=== PATIENT | male | born 1990 | race Caucasian/White ===

== ENCOUNTER 2017-09-10 06:06 | Emergency (ER) | payer SELFPAY ==
[2017-09-10] MEDS ORDERED: ONDANSETRON 4 MG/2 ML VIAL IVP ONE (06:30)
[2017-09-10] MEDS ORDERED: HYDROmorphONE/DILAUDID 1 MG/ML INJ IVP ONE (06:30)
[2017-09-10] MEDS ORDERED: NS 1,000 ML IV ONE (06:30)
[2017-09-10 06:36] LABS: % IMMATURE GRANULYOCYTES 0.1 % (0.0-1.1); ABSOLUTE IMMATURE GRANULOCYTES 0.01 10^3/uL (0.00-0.10); ADD DIFF? NO; ADD MORPH? NO; ADD SCAN? NO; ATYPICAL LYMPHOCYTE FLAG 0 (0-99); FRAGMENT RBC FLAG 0 (0-99); HEMATOCRIT 47.2 % (40.0-51.0); HEMOGLOBIN 17.3 g/dL (13.7-17.5); LEFT SHIFT FLG 0 (0-99); LIPEMIA HEMOLYSIS FLAG 90 (0-99); MEAN CELL HEMOGLOBIN 31.9 pg (27.9-34.1); MEAN CELL HEMOGLOBIN CONCENTR. 36.7 g/dL (32.4-36.7); MEAN CELL VOLUME 86.9 fL (81.5-99.8); MEAN PLATELET VOLUME 9.7 fL (8.7-11.7); PLATELET CLUMPS FLAG 0 (0-99); PLATELET COUNT 247 10^3/uL (150-400); RED BLOOD CELL COUNT 5.43 10^6/uL (4.40-6.38); RED CELL DISTRIBUTION WIDTH 11.9 % (11.5-15.2)
--- NOTE | 2017-09-10 06:36 | EDPHY ---
H & P Stated Complaint: abd pain - Personal History Current Tetanus/Diphtheria Vaccine: Yes Current Tetanus Diphtheria and Acellular Pertussis (TDAP): Yes - Medical/Surgical History Hx Asthma: No Hx Chronic Respiratory Disease: No Hx Diabetes: No Hx Cardiac Disease: No Hx Renal Disease: No Hx Cirrhosis: No Hx Alcoholism: No Hx HIV/AIDS: No Hx Splenectomy or Spleen Trauma: No Other PMH: R inguinal hernia repair, - Social History Smoking Status: Never smoked Time Seen by Provider: 09/10/17 06:17 HPI/ROS: Chief Complaint: Abdominal pain HPI: 27-year-old male woke this morning with 9/10 right upper quadrant abdominal pain. He does not have a history of similar pain in the past. Some nausea no vomiting. No diarrhea. Did have a bowel movement at midnight. No fevers or chills. No chest pain or shortness of breath. Pain is constant not moving. There are no aggravating or alleviating factors. He does have a history of a hernia repair in the past ROS: 10 point Review of Systems is negative except as noted in the HPI. PMH: Hernia repair Social History: No smoking, occasional alcohol, occasional marijuana Family History: non-contributory Physical Exam: Gen: Awake, Alert, No Distress HEENT: Nose: no rhinorrhea Eyes: PERRLA, EOMI Mouth: Moist mucosa Neck: Supple, no JVD Chest: nontender, lungs clear to auscultation Heart: S1, S2 normal, no murmur Abd: Soft, he has tenderness in the right upper quadrant with a positive Leiva sign, no lower quadrant tenderness Back: no CVA tenderness, no midline tenderness Ext: no edema, non-tender Skin: no rash Neuro: CN II-XII intact, Sensation grossly intact, Strength 5/5 in bilateral upper and lower extremities (Cabrera Hightower) Constitutional: Initial Vital Signs Temperature (C) 36.8 C 09/10/17 06:11 Heart Rate 74 09/10/17 06:11 Respiratory Rate 20 09/10/17 06:11 Blood Pressure 142/98 H 09/10/17 06:11 O2 Sat (%) 99 09/10/17 06:11 O2 Delivery Mode Room Air Allergies/Adverse Reactions: No Known Allergies Allergy (Unverified 09/10/17 06:11) Home Medications: Medication Instructions Recorded NK [No Known Home Meds] 09/10/17 Medical Decision Making ED Course/Re-evaluation: Patient presenting with right upper quadrant abdominal pain and tenderness. Laboratory evaluations unremarkable at this time. Patient is pending a right upper quadrant ultrasound. Patient is signed out to Dr. Tatum pending re- evaluation ultrasound results. (Cabrera Hihgtower) Other Provider: Patient signed out to me at [phone]. [id number]: US results reported to me by Dr. Ewing as positive gallstones, normal GB wall, normal CBD. On re-evaluation of patient at this time, he feels better but is still in pain. He refuses admission or potential surgery as he is uninsured. I will treat him with IV Toradol and re-assess, with plan for likely d/c home with pain medication and surgical referral. (Cm Tatum) - Data Points Laboratory Results: Laboratory Results 09/10/17 06:20 09/10/17 06:20 09/10/17 09/10/17 06:20 06:20 WBC 10.15 10^3/uL H 10^3/uL (3.80-9.50) RBC 5.43 10^6/uL 10^6/uL (4.40-6.38) Hgb 17.3 g/dL g/dL (13.7-17.5) Hct 47.2 % % (40.0-51.0) MCV 86.9 fL fL (81.5-99.8) MCH 31.9 pg pg (27.9-34.1) MCHC 36.7 g/dL g/dL (32.4-36.7) RDW 11.9 % % (11.5-15.2) Plt Count 247 10^3/uL 10^3/uL (150-400) MPV 9.7 fL fL (8.7-11.7) Neut % (Auto) 56.6 % % (39.3-74.2) Lymph % (Auto) 33.9 % % (15.0-45.0) [place] % (Auto) 6.7 % % (4.5-13.0) Eos % (Auto) 2.0 % % (0.6-7.6) Baso % (Auto) 0.7 % % (0.3-1.7) Nucleat RBC Rel Count 0.0 % % (0.0-0.2) Absolute Neuts (auto) 5.75 10^3/uL 10^3/uL (1.70-6.50) Absolute Lymphs (auto) 3.44 10^3/uL H 10^3/uL (1.00-3.00) Absolute Monos (auto) 0.68 10^3/uL 10^3/uL (0.30-0.80) Absolute Eos (auto) 0.20 10^3/uL 10^3/uL (0.03-0.40) Absolute Basos (auto) 0.07 10^3/uL 10^3/uL (0.02-0.10) Absolute Nucleated RBC 0.00 10^3/uL 10^3/uL (0-0.01) Immature Gran % 0.1 % % (0.0-1.1) Immature Gran # 0.01 10^3/uL 10^3/uL (0.00-0.10) Sodium 142 mEq/L mEq/L (134-144) Potassium 3.4 mEq/L L mEq/L (3.5-5.2) Chloride 105 mEq/L mEq/L (97-110) Carbon Dioxide 22 mEq/l mEq/l (22-31) Anion Gap 15 mEq/L mEq/L (8-16) BUN 20 mg/dL mg/dL (7-23) Creatinine 1.0 mg/dL mg/dL (0.7-1.3) Estimated GFR > 60 Glucose 113 mg/dL H mg/dL (70-100) Calcium 10.0 mg/dL mg/dL (8.5-10.4) Total Bilirubin 0.5 mg/dL mg/dL (0.1-1.4) AST 24 IU/L IU/L (17-59) ALT 45 IU/L IU/L (21-72) Alkaline Phosphatase 55 IU/L IU/L (38-126) Total Protein 7.4 g/dL g/dL (6.3-8.2) Albumin 4.9 g/dL g/dL (3.5-5.0) Lipase 116 IU/L IU/L (23-300) Medications Given: Discontinued Medications Hydromorphone HCl (Dilaudid) 0.5 mg IVP EDNOW ONE Stop: 09/10/17 06:31 Last Admin: 09/10/17 06:35 Dose: 0.5 mg Sodium Chloride (Ns) 1,000 mls @ 0 mls/hr IV ONCE ONE; Wide Open PRN Reason: Protocol Stop: 09/10/17 06:31 Last Admin: 09/10/17 06:35 Dose: 1,000 mls Ondansetron HCl (Zofran) 4 mg IVP EDNOW ONE Stop: 09/10/17 06:31 Last Admin: 09/10/17 06:35 Dose: 4 mg Departure - Departure Disposition: Home, Routine, Self-Care Clinical Impression: Biliary colic Condition: Good Instructions: Gallstones (ED) Additional Instructions: Follow-up with your primary doctor within 72 hours. Return to the Emergency Department for worsening pain, fever, severe vomiting, change in character or severity of pain or other worsening of condition. Follow-up with the surgeon within 1-2 weeks without fail as you will likely require surgery for your gallbladder. Referrals: NONE *PRIMARY CARE P,. [Primary Care Provider] - As per Instructions Bhupendra Reyes MD [Medical Doctor] - As per Instructions
[2017-09-10 06:43] LABS: ALANINE AMINOTRANSFERASE 45 IU/L (21-72); ALBUMIN 4.9 g/dL (3.5-5.0); ALKALINE PHOSPHATASE 55 IU/L (38-126); ANION GAP 15 mEq/L (8-16); ASPARTATE AMINOTRANSFERASE 24 IU/L (17-59); BILIRUBIN,TOTAL 0.5 mg/dL (0.1-1.4); CARBON DIOXIDE 22 mEq/l (22-31); CHLORIDE 105 mEq/L (97-110); GLOMERULAR FILTRATION RATE > 60; GLUCOSE 113 mg/dL (70-100); POTASSIUM 3.4 mEq/L (3.5-5.2); SODIUM 142 mEq/L (134-144); TOTAL PROTEIN 7.4 g/dL (6.3-8.2)
[2017-09-10] MEDS ORDERED: KETOROLAC 30 MG/1 ML SDV IVP ONE (08:20)
[2017-09-10 10:34] VITALS: BP 116/68; PULSE 77; RESP 18; TEMP 98.2; O2SAT 95
== END 2017-09-10 10:31 | disposition home or self-care (01) ==
DX: K80.50 Calculus of bile duct without cholangitis or cholecystitis without obstruction (principal); E86.9 Volume depletion, unspecified
CPT/HCPCS: 96374; J1170; J1885; J2405